=== PATIENT | female | born 1965 | race Caucasian/White ===

== ENCOUNTER → 2017-01-24 | Outpatient (CLI) | payer BC ==
--- NOTE | 2017-01-24 14:27 | WOMENS IMAGING REPORT ---
EXAM DESCRIPTION: BILAT SCREENING MAMMO W/CAD COMPLETED DATE/TIME: 01/24/2017 9:51 am REASON FOR STUDY: Z12.31, ROUTINE SCREENING MAMMO Z12.31 ENCNTR SCREEN MAMMOGRAM FOR MALIGNANT NEOP LASM OF COURTNEY COMPARISON: 01/07/2016 and 12/31/2014. TECHNIQUE: Standard craniocaudal and mediolateral oblique views of each breast recorded using digita l acquisition. LIMITATIONS: None. FINDINGS: RIGHT BREAST MASSES: No suspicious masses. CALCIFICATIONS: No new or suspicious calcifications. ARCHITECTURAL DISTORTION: None. DEVELOPING DENSITY: Developing density in the superior breast, best visualized on the MLO view, locat ed 4 cm from the nipple. ASYMMETRY: None noted. OTHER: No other significant findings. LEFT BREAST MASSES: No suspicious masses. CALCIFICATIONS: No new or suspicious calcifications. ARCHITECTURAL DISTORTION: None. DEVELOPING DENSITY: None. ASYMMETRY: None noted. OTHER: No other significant findings. Read with the assistance of CAD. .[facility] - R2 Cenova Version 1.3 .[facility] - R2 Cenova Version 1.3 .[facility] - R2 Cenova Version 2.4 .[facility] - R2 Cenova Version 2.4 .[facility] - R2 Pouncer Machine Version 9.2 IMPRESSION: Developing density in the superior right breast. Stable mammographic appearance of the left breast. BREAST DENSITY: b. There are scattered areas of fibroglandular density. BIRAD: 0 Incomplete: Needs Additional Imaging Evaluation and/or prior Mammograms for Comparison. RECOMMENDATION: RECOMMENDED FOLLOW-UP: Recommend additional evaluation with compression views and ul trasound of the right breast. Recommend routine screening mammography of the left breast. The patient will be contacted for additional imaging. COMMENT: The patient has been notified of the results by letter per SA requirements. Additional no tification policies are in place for contacting patient with suspicious or incomplete findings. Quality ID #[id number]: The [employer] recommends an annual screening mammogram for women aged 40 years or over. This facility utilizes a reminder system to ensure that all patients receive reminder letters, and/or direct phone calls for appointments. This includes reminders for routine scr eening mammograms, diagnostic mammograms, or other Breast Imaging Interventions when appropriate. Th is patient will be placed in the appropriate reminder system. The [employer] (ACR) has developed recommendations for screening MRI of the breast s in certain patient populations, to be used in conjunction with mammography. Breast MRI surveillanc e may be appropriate for women with more than 20% lifetime risk of developing breast cancer as deter mined by genetic testing, significant family history of the disease, or history of mantle radiation f or Hodgkins Disease. ACR Practice Guidelines 2008. TECHNICAL DOCUMENTATION: FINDING NUMBER: (1) ASSESSMENT: (1) JOB ID: [id number] [employer]- All Rights Reserved
== END ==
LOC: WI 09:10
PROVIDERS: ATTEND Obstetrics & Gynecology Gynecology
DX: Z12.31 Encounter for screening mammogram for malignant neoplasm of breast (principal); R92.2 Inconclusive mammogram
CPT/HCPCS: 77067; G0202

== ENCOUNTER → 2017-02-16 | Outpatient (CLI) | payer BC ==
--- NOTE | 2017-02-16 15:43 | WOMENS IMAGING REPORT ---
EXAM DESCRIPTION: RIGHT DIAGNOSTIC MAMMO W/CAD; U/S BREAST UNILAT LIMITED COMPLETED DATE/TIME: 02/16/2017 8:29 am; 02/16/2017 9:08 am REASON FOR STUDY: LUMP IN BREAST; RT BREAST N63 UNSPECIFIED LUMP IN BREAST COMPARISON: 01/24/2017. 2014 through 2015 mammograms. TECHNIQUE: Spot compression right CC and MLO and mediolateral views. Non spot compressed mediolater al view. Targeted right breast ultrasound with grayscale and limited color Doppler imaging. LIMITATIONS: None. FINDINGS: BREAST: Right MASSES: No suspicious lesions. On some images 80 tiny partially circumscribed mass in the anterior b reast upper half persists. Probably present previously and only variably seen given size and locatio n. CALCIFICATIONS: No new or suspicious calcifications. ARCHITECTURAL DISTORTION: None. DEVELOPING DENSITY: None. ASYMMETRY: None noted. OTHER: No other significant findings. Ultrasound imaging in the anterior breast at 1- 2 o'clock reveals a tiny cyst measuring close to 6 mm . No suspicious features. IMPRESSION: No worrisome mammographic findings or ultrasound lesions. Small cyst in the right breas t is probably chronic. BREAST DENSITY: b. There are scattered areas of fibroglandular density. BIRAD: 2 Benign findings. RECOMMENDATION: RECOMMENDED FOLLOW UP: Yearly screening mammography. SPECIFIC INTERVENTION/IMAGING/CONSULTATION RECOMMENDED:No additional intervention/ imaging/consultati on needed at this time. COMMUNICATION:No significant abnormalities to discuss with the patient today. COMMENT: The patient has been notified of the results by letter per MQSA requirements. Additional no tification policies are in place for contacting patient with suspicious or incomplete findings. Quality ID #[id number]: The [employer] recommends an annual screening mammogram for women aged 40 years or over. This facility utilizes a reminder system to ensure that all patients receive reminder letters, and/or direct phone calls for appointments. This includes reminders for routine scr eening mammograms, diagnostic mammograms, or other Breast Imaging Interventions when appropriate. Th is patient will be placed in the appropriate reminder system. The [employer] (ACR) has developed recommendations for screening MRI of the breast s in certain patient populations, to be used in conjunction with mammography. Breast MRI surveillanc e may be appropriate for women with more than 20% lifetime risk of developing breast cancer as deter mined by genetic testing, significant family history of the disease, or history of mantle radiation f or Hodgkins Disease. ACR Practice Guidelines 2008. TECHNICAL DOCUMENTATION: FINDING NUMBER: (1) ASSESSMENT: (1) JOB ID: [id number] [employer]- All Rights Reserved
== END ==
LOC: WI 07:59
PROVIDERS: ATTEND Obstetrics & Gynecology Gynecology
DX: N63 Unspecified lump in breast (principal)
CPT/HCPCS: 76642; G0206

== ENCOUNTER 2017-04-10 10:05 | Emergency (ER) | payer BC ==
[2017-04-10] MEDS ORDERED: HYDROCODONE/ACETAMINOPHEN 5-325 MG TABLET PO ONE (11:14)
--- NOTE | 2017-04-10 11:14 | ER Document Report ---
ED General - General Chief Complaint: Shoulder Injury Stated Complaint: RIGHT ARM PAIN Time Seen by Provider: 04/10/17 11:10 Mode of Arrival: Ambulatory Information source: Patient Notes: 51-year-old female presents with complaints of right shoulder pain. Patient notes she had a jerking sensation yesterday after an injury and has had limited range of motion of the right shoulder since. Patient denies any elbow pain denies any numbness or weakness denies any previous similar episodes TRAVEL OUTSIDE OF THE [place] IN LAST 30 DAYS: No - HPI Onset: Yesterday Onset/Duration: Sudden Quality of pain: Achy Severity: Moderate Pain Level: 3 Associated symptoms: Body/muscle aches Exacerbated by: Movement Relieved by: Denies Similar symptoms previously: No Recently seen / treated by doctor: No - Related Data Allergies/Adverse Reactions: Sulfa (Sulfonamide Antibiotics) Allergy (Intermediate, Verified 04/10/17 10:39) Past Medical History - Social History Smoking Status: Never Smoker Cigarette use (# per day): No Chew tobacco use (# tins/day): No Smoking Education Provided: No Frequency of alcohol use: None Drug Abuse: None Family History: Reviewed & Not Pertinent Patient has suicidal ideation: No Patient has homicidal ideation: No Pulmonary Medical History: Reports: Hx Asthma Renal/ Medical History: Denies: Hx Peritoneal Dialysis Past Surgical History: Reports: Hx Cholecystectomy, Hx Orthopedic Surgery - r ankle x 5 - Immunizations Hx Diphtheria, Pertussis, Tetanus Vaccination: Yes Review of Systems - Review of Systems Notes: REVIEW OF SYSTEMS: CONSTITUTIONAL : Denies fever, chills, or sweats. Denies recent illness. EENT: Denies eye, ear, throat, or mouth pain or symptoms. Denies nasal or sinus congestion or discharge. Denies throat, tongue, or mouth swelling or difficulty swallowing. CARDIOVASCULAR: Denies chest pain. Denies palpitations or racing or irregular heart beat. Denies ankle edema. RESPIRATORY: Denies cough, cold, or chest congestion. Denies shortness of breath, difficulty breathing, or wheezing. GASTROINTESTINAL: Denies abdominal pain or distention. Denies nausea, vomiting , or diarrhea. Denies blood in vomitus, stools, or per rectum. Denies black, tarry stools. Denies constipation. GENITOURINARY: Denies difficulty urinating, painful urination, burning, frequency, blood in urine, or discharge. FEMALE GENITOURINARY: Denies vaginal bleeding, heavy or abnormal periods, irregular periods. Denies vaginal discharge or odor. MUSCULOSKELETAL: Admits to right shoulder SKIN: Denies rash, lesions or sores. HEMATOLOGIC : Denies easy bruising or bleeding. LYMPHATIC: Denies swollen, enlarged glands. NEUROLOGICAL: Denies confusion or altered mental status. Denies passing out or loss of consciousness. Denies dizziness or lightheadedness. Denies headache. Denies weakness or paralysis or loss of use of either side. Denies problems with gait or speech. Denies sensory loss, numbness, or tingling. Denies seizures. PSYCHIATRIC: Denies anxiety or stress. Denies depression, suicidal ideation, or homicidal ideation. ALL OTHER SYSTEMS REVIEWED AND NEGATIVE. PHYSICAL EXAMINATION: GENERAL: Well-appearing, well-nourished and in no acute distress. HEAD: Atraumatic, normocephalic. EYES: Pupils equal round and reactive to light, extraocular movements intact, conjunctiva are normal. ENT: Nares patent, oropharynx clear without exudates. Moist mucous membranes. NECK: Normal range of motion, supple without lymphadenopathy LUNGS: Breath sounds clear to auscultation bilaterally and equal. No wheezes rales or rhonchi. HEART: Regular rate and rhythm without murmurs ABDOMEN: Soft, nontender, nondistended abdomen. No guarding, no rebound. No masses appreciated. Female : deferred Musculoskeletal: Right arm in sling limited range of motion secondary to pain NEUROLOGICAL: Cranial nerves grossly intact. Normal speech, normal gait. Normal sensory, motor exams PSYCH: Normal mood, normal affect. SKIN: Warm, Dry, normal turgor, no rashes or lesions noted. Dictation was performed using [employer] voice recognition software Physical Exam - Vital signs Vitals: Temp Pulse Resp BP Pulse Ox 98.7 F 106 H 16 151/94 H 97 04/10/17 10:40 04/10/17 10:40 04/10/17 10:40 04/10/17 10:40 04/10/17 10:40 Course - Re-evaluation Re-evalutation: 04/10/17 11:19 Patient walked to x-ray by myself 04/10/17 12:26 X-ray notes no acute abnormality, patient placed in sling otherwise appears to be musculoskeletal versus tendon injury. Patient will be discharged home with orthopedic follow-up and pain control and work excuse , After performing a Medical Screening Examination, I estimate there is LOW risk for INTRACRANIAL HEMORRHAGE, UNSTABLE SPINE FRACTURE, CENTRAL CORD SYNDROME , CAUDA EQUINA, THORACIC AORTIC DISSECTION, PNEUMOTHORAX, PERFORATED BOWEL, RUPTURED ABDOMINAL AORTIC ANEURYSM, ACUTE TENDON RUPTURE, COMPARTMENT SYNDROME, or OPEN FRACTURE, thus I consider the discharge disposition reasonable. Also, there is no evidence or peritonitis, sepsis, or toxicity. I have reevaluated this patient multiple times and no significant life threatening changes are noted. The patient and I have discussed the diagnosis and risks, and we agree with discharging home to follow-up with their primary doctor with the understanding that symptoms and presentations can change. We also discussed returning to the Emergency Department immediately if new or worsening symptoms occur. We have discussed the symptoms which are most concerning (e.g., bloody stool, fever, changing or worsening pain, vomiting) that necessitate immediate return. - Vital Signs Vital signs: Temp Pulse Resp BP Pulse Ox 97.9 F 89 18 140/88 H 100 04/10/17 12:04/10/17 12:04/10/17 12:04/10/17 12:04/10/17 12:00 - Diagnostic Test Radiology reviewed: Image reviewed, Reports reviewed - no acute abnormality Discharge - Discharge Clinical Impression: Shoulder injury Qualifiers: Encounter type: initial encounter Laterality: right Qualified Code(s): S49.91XA - Unspecified injury of right shoulder and upper arm, initial encounter Condition: Good Disposition: HOME, SELF-CARE Instructions: Sling as Treatment ([facility]) Prescriptions: Hydrocodone/Acetaminophen [Beals 5-325 mg Tablet] 1 tab PO Q6 #14 tablet Forms: Return to Work Referrals: KATIE SALAS MD [ACTIVE STAFF] - Follow up tomorrow
--- NOTE | 2017-04-10 11:43 | RADIOLOGY REPORT (SQ) ---
EXAM DESCRIPTION: SHOULDER RIGHT 2 OR MORE VIEWS COMPLETED DATE/TIME: 04/10/2017 11:29 am REASON FOR STUDY: shoulder injury COMPARISON: None. NUMBER OF VIEWS: Three views. TECHNIQUE: Internal rotation, external rotation, and Y view images acquired of the right shoulder. LIMITATIONS: None. FINDINGS: MINERALIZATION: Normal. BONES: No acute fracture or dislocation. No worrisome bone lesions. JOINTS: No dislocation. Degenerative changes in the acromioclavicular joint with osteophytes. VISUALIZED LUNGS AND RIBS: No pneumothorax. No rib fracture. SOFT TISSUES: No radiopaque foreign body. OTHER: No other significant finding. IMPRESSION: DEGENERATIVE CHANGES IN THE ACROMIOCLAVICULAR JOINT. NO RADIOGRAPHIC EVIDENCE OF ACUTE I NJURY. TECHNICAL DOCUMENTATION: JOB ID: [id number] [employer]- All Rights Reserved
[2017-04-10 12:02] VITALS: BP 140/88
== END 2017-04-10 11:58 | disposition home or self-care (01) ==
LOC: ER 10:05
DX: S49.91XA Unspecified injury of right shoulder and upper arm, initial encounter (principal); X50.0XXA Overexertion from strenuous movement or load, initial encounter; M25.511 Pain in right shoulder; J45.909 Unspecified asthma, uncomplicated; Z88.2 Allergy status to sulfonamides
CPT/HCPCS: 99283

== ENCOUNTER → 2017-05-03 | Outpatient (CLI) | payer BC ==
[2017-05-03 10:18] LABS: ABSOLUTE EOSINOPHILS # (AUTO) 0.1 10^3/uL (0.0-0.6); ABSOLUTE LYMPHOCYTES (AUTO) 1.9 10^3/uL (0.5-4.7); ABSOLUTE MONOCYTES (AUTO) 0.4 10^3/uL (0.1-1.4); ABSOLUTE NEUT (AUTO) 2.3 10^3/uL (1.7-8.2); BASOPHILS % (AUTO) 0.2 % (0-2); EOSINOPHILS % (AUTO) 1.8 % (0-6); HEMATOCRIT 39.6 % (36.0-47.0); HEMOGLOBIN 13.3 g/dL (12.0-15.5); HGB HCT DIFFERENCE 0.3; LYMPHOCYTES % (AUTO) 40.5 % (13-45); MEAN CORPUSCULAR HEMOGLOBIN 30.5 pg (27.0-33.4); MEAN CORPUSCULAR HGB CONC 33.7 g/dL (32.0-36.0); MEAN CORPUSCULAR VOLUME 91 fl (80-97); MONOCYTES % (AUTO) 7.6 % (3-13); RED BLOOD COUNT 4.37 10^6/uL (3.72-5.28); RED CELL DISTRIBUTION WIDTH 13.2 % (11.5-14.0); SEGMENTED NEUTROPHILS % (AUTO) 49.9 % (42-78); WHITE BLOOD COUNT 4.7 10^3/uL (4.0-10.5)
[2017-05-03 10:38] LABS: ANION GAP 12 (5-19); BLOOD UREA NITROGEN 23 mg/dL (7-20); CALCIUM 9.7 mg/dL (8.4-10.2); CARBON DIOXIDE 26 mmol/L (22-30); CHLORIDE 106 mmol/L (98-107); CREATININE RESULT 0.73 mg/dL (0.52-1.25); GLUCOSE 83 mg/dL (75-110); POTASSIUM 5.1 mmol/L (3.6-5.0); SODIUM 143.5 mmol/L (137-145)
--- NOTE | 2017-05-03 12:20 | EKG REPORT ---
SEVERITY:- NORMAL ECG - SINUS RHYTHM : Confirmed by: Pattie Lucio MD 03-May-2017 12:19:20
--- NOTE | 2017-05-03 14:03 | RADIOLOGY REPORT (SQ) ---
EXAM DESCRIPTION: CHEST PA/LATERAL COMPLETED DATE/TIME: 05/03/2017 9:48 am REASON FOR STUDY: PRE OP COMPARISON: None. EXAM PARAMETERS: NUMBER OF VIEWS: two views TECHNIQUE: Digital Frontal and Lateral radiographic views of the chest acquired. RADIATION DOSE: NA LIMITATIONS: none FINDINGS: LUNGS AND PLEURA: No opacities, masses or pneumothorax. No pleural effusion. MEDIASTINUM AND HILAR STRUCTURES: No masses or contour abnormalities. HEART AND VASCULAR STRUCTURES: Heart normal size. No evidence for failure. BONES: No acute findings. HARDWARE: None in the chest. OTHER: No other significant finding. IMPRESSION: NO SIGNIFICANT RADIOGRAPHIC FINDING IN THE CHEST. TECHNICAL DOCUMENTATION: JOB ID: [id number] [employer]- All Rights Reserved
== END ==
LOC: OD 08:55
PROVIDERS: ATTEND Orthopaedic Surgery
DX: Z01.818 Encounter for other preprocedural examination (principal)
CPT/HCPCS: 36415; 71020; 80048; 85025; 93005; 93010

== ENCOUNTER → 2018-02-15 | Outpatient (CLI) | payer BC ==
--- NOTE | 2018-02-16 19:52 | WOMENS IMAGING REPORT ---
EXAM DESCRIPTION: 3D SCREENING MAMMO BILAT COMPLETED DATE/TIME: 02/15/2018 8:14 am REASON FOR STUDY: SCREENING MAMMO Z12.31 ENCNTR SCREEN MAMMOGRAM FOR MALIGNANT NEOPLASM OF COURTNEY COMPARISON: Multiple since 2008 TECHNIQUE: Standard craniocaudal and mediolateral oblique views of each breast recorded using digita l acquisition and breast tomosynthesis. LIMITATIONS: None. FINDINGS: No masses, calcifications or architectural distortion. No areas of suspicion. Read with the assistance of CAD. .[facility] - R2 Cenova Version 1.3 .[facility] - R2 Cenova Version 1.3 .[facility] - R2 Cenova Version 2.4 .[facility] [place] - R2 Cenova Version 2.4 .[facility] - R2 [employer]visor Version 9.2 IMPRESSION: NORMAL MAMMOGRAM. BIRADS 1. BREAST DENSITY: b. There are scattered areas of fibroglandular density. BIRAD: 1 NEGATIVE RECOMMENDATION: ROUTINE SCREENING Please continue yearly bilateral screening tomosynthesis in February 2019 COMMENT: The patient has been notified of the results by letter per MQSA requirements. Additional no tification policies are in place for contacting patient with suspicious or incomplete findings. Quality ID #[id number]: The [employer] recommends an annual screening mammogram for women aged 40 years or over. This facility utilizes a reminder system to ensure that all patients receive reminder letters, and/or direct phone calls for appointments. This includes reminders for routine scr eening mammograms, diagnostic mammograms, or other Breast Imaging Interventions when appropriate. Th is patient will be placed in the appropriate reminder system. The [employer] (ACR) has developed recommendations for screening MRI of the breast s in certain patient populations, to be used in conjunction with mammography. Breast MRI surveillanc e may be appropriate for women with more than 20% lifetime risk of developing breast cancer as deter mined by genetic testing, significant family history of the disease, or history of mantle radiation f or Hodgkins Disease. ACR Practice Guidelines 2008. DBT Technology DBT is a type of tomographic mammography. With conventional mammography, overlapping breast tissue ma y make lesions difficult to detect, even with good compression. DBT uses an x-ray tube that rotates a round the breast, taking images at different angles. These images are then combined to create thin sl ices of the breast that the radiologist can view as a 3D reconstruction. The [employer](BHI) unit can perform full-field digital mammograms (2D imaging); or DBT (3D imaging); or both, in a combination mode that quickly performs both the mammogram and the tomosynthesis scan while the breast is still compressed. PQRS 6045F: Fluoroscopic imaging is not utilized for breast tomosynthesis. TECHNICAL DOCUMENTATION: FINDING NUMBER: (1) ASSESSMENT: (1) JOB ID: [id number] [employer]- All Rights Reserved Reading location - IP/workstation name: [email or web address]
== END ==
LOC: WI 08:00
PROVIDERS: ATTEND Obstetrics & Gynecology Gynecology
DX: Z12.31 Encounter for screening mammogram for malignant neoplasm of breast (principal)
CPT/HCPCS: 77063; 77067

== ENCOUNTER → 2019-01-09 | Day surgery (SDC) | payer BC ==
--- NOTE | 2019-01-09 16:05 | RADIOLOGY REPORT (SQ) ---
EXAM DESCRIPTION: ARTHRO SHOULDER INJECTION; FLUORO/NEEDLE PLACEMENT COMPLETED DATE/TIME: 01/09/2019 3:41 pm REASON FOR STUDY: PAIN IN RIGHT SHOULDER (M25.511) M25.511 PAIN IN RIGHT SHOULDER COMPARISON: None. FLUOROSCOPY TIME: 0.2 minutes 1 digital fluoroscopic image saved to PACS. LIMITATIONS: None. PROCEDURE: Procedure, risks, benefits and alternatives explained to patient who then gave written co nsent. The right posterior glenohumeral joint at the shoulder was marked and a time out was called fo r correct procedure verification. Posterior entry site marked using fluoroscopic guidance. Shoulder prepped and draped using sterile technique. Local anesthesia achieved using 6 mL of 1% lidocaine in jection. 22 gauge spinal needle introduced into the joint space under direct fluoroscopic visualizat ion. Non-ionic contrast instilled to confirm intra-articular position. Dilute gadolinium solution the n injected. Needle removed and entry site covered with sterile bandage. No immediate complications n oted. TECHNIQUE: Digital images acquired during fluoroscopy and stored on PACS. Patient immediately take n to the MR suite for additional imaging. INJECTION LOCATION: Right posterior glenohumeral joint CONTRAST TYPE AND AMOUNT: 1 mL of Isovue-300 was injected to confirm intra-articular needle placement followed by 10 mL of dilute Dotarem/Saline mixture. IMPRESSION: SUCCESSFUL NEEDLE PLACEMENT AND INJECTION FOR RIGHT SHOULDER MR ARTHROGRAM USING POSTERI OR APPROACH. COMMENT: Quality ID 145: Final reports for procedures using fluoroscopy that document radiation exp osure indices, or exposure time and number of fluorographic images (if radiation exposure indices are not available) TECHNICAL DOCUMENTATION: JOB ID: [id number] [employer]- All Rights Reserved Reading location - IP/workstation name: [email or web address]-
--- NOTE | 2019-01-09 16:37 | RADIOLOGY REPORT (SQ) ---
EXAM DESCRIPTION: MRI RT UPPER JOINT WITH COMPLETED DATE/TIME: 01/09/2019 4:06 pm REASON FOR STUDY: PAIN IN RIGHT SHOULDER (M25.511) M25.511 PAIN IN RIGHT SHOULDER COMPARISON: Right shoulder fluoroscopic arthrogram same date TECHNIQUE: Right shoulder images acquired and stored on PACS. Oblique coronal, oblique sagittal, and axial imaging to include fat sensitive sequences as T1, water sensitive sequences as FST2/STIR, and contrast sensitive sequences as FST1. LIMITATIONS: None. FINDINGS: JOINT DISTENTION: Adequate distention for interpretation. BONE MARROW AND CORTEX: Normal. No significant osteophytes. No edema or defects. Old tacks post rota tor cuff repair over the right humeral head greater tuberosity AC JOINT: Type II acromion. Bulky acromioclavicular joint hypertrophy is present with bony spurring a nd synovial thickening. GLENOHUMERAL JOINT: Very mild chondromalacia. ROTATOR CUFF: There is a diffuse broad-based full-thickness tear of the posterior half supraspinatus tendon and anterior half infraspinatus tendon on sagittal images 5-13. There is atrophy of supra and infraspinatus muscles on sagittal T1 image 18. Subscapularis is intact. LABRUM AND BICEPS LABRAL COMPLEX: There is high signal in the rotator interval from tear. Long head biceps tendon and superior labrum are grossly intact. INFERIOR LABRAL COMPLEX: Bony glenoid and labrum intact. IGHL intact without thickening or tear. No p aralabral cysts. ADJACENT SOFT TISSUES: No masses or nodes. OTHER: No other significant finding. IMPRESSION: Full-thickness tear of the supra and infraspinatus tendons with atrophy of the muscles TECHNICAL DOCUMENTATION: JOB ID: [id number] 2010 [employer]- All Rights Reserved Reading location - IP/workstation name: [email or web address]
== END ==
LOC: RAD 14:39
PROVIDERS: ATTEND Physician Assistant
DX: M25.511 Pain in right shoulder (principal); M75.121 Complete rotator cuff tear or rupture of right shoulder, not specified as traumatic
CPT/HCPCS: 23350; 77002

== ENCOUNTER → 2019-04-24 | Outpatient (CLI) | payer BC ==
--- NOTE | 2019-04-24 09:55 | WOMENS IMAGING REPORT ---
EXAM DESCRIPTION: 3D SCREENING MAMMO BILAT COMPLETED DATE/TIME: 04/24/2019 8:17 am REASON FOR STUDY: Z12.31 ENCOUNTER FOR SCREENING MAMMOGRAM FOR MALIGNANT NEOPLASM OF BREAST Z12.31 ENCNTR SCREEN MAMMOGRAM FOR MALIGNANT NEOPLASM OF COURTNEY COMPARISON: Multiple since 2008 EXAM PARAMETERS: Views: Standard craniocaudal and mediolateral oblique views of each breast recorded using digital acquisition and breast tomosynthesis. Read with the assistance of CAD. .[facility] [employer] Version 9.2 LIMITATIONS: None. FINDINGS: No suspicious masses, suspicious calcifications or architectural distortion. No areas of c oncern. IMPRESSION: NEGATIVE MAMMOGRAM. BIRADS 1. BREAST DENSITY: b. There are scattered areas of fibroglandular density. BIRAD: ASSESSMENT: 1 NEGATIVE RECOMMENDATION: ROUTINE SCREENING COMMENT: The patient has been notified of the results by letter per MQSA requirements. Additional no tification policies are in place for contacting patient with suspicious or incomplete findings. Quality ID #225: The [employer] recommends an annual screening mammogram for women aged 40 years or over. This facility utilizes a reminder system to ensure that all patients receive reminder letters, and/or direct phone calls for appointments. This includes reminders for routine scr eening mammograms, diagnostic mammograms, or other Breast Imaging Interventions when appropriate. Th is patient will be placed in the appropriate reminder system. TECHNICAL DOCUMENTATION: FINDING NUMBER: (1) ASSESSMENT: (1) JOB ID: [id number] [employer]- All Rights Reserved Reading location - IP/workstation name: [email or web address]
== END ==
LOC: WI 07:45
PROVIDERS: ATTEND Obstetrics & Gynecology Gynecology
DX: Z12.31 Encounter for screening mammogram for malignant neoplasm of breast (principal)
CPT/HCPCS: 77063; 77067